=== PATIENT | male | born 1955 ===

== ENCOUNTER 2019-11-18 06:59 | Day surgery (SDC) | payer OTHER ==
[~2019-11-18 06:59] MED LIST: CHOLESTYRAMINE P4 GM PO; HYOSCYAMINE0.125 M1 SL; IMODIUM PO; PROTONIX40 MG PO
== END 2019-11-18 10:15 | disposition home or self-care (01) ==
LOC: AMB-ENDOS 06:59
DX: D13.2 Benign neoplasm of duodenum (principal)